=== PATIENT | male | born 1990 | race Caucasian/White ===

== ENCOUNTER → 2016-11-27 10:19 | Emergency (ER) | payer SELFPAY ==
[~2016-11-27 10:19] MED LIST: PPD test dose* 5 TU/0.1 ML TEST (*USE PPD ORDER SET*) INTRADERM SCH; PPD test dose* 5 TU/0.1 ML TEST (*USE PPD ORDER SET*) ONE
== END | disposition home or self-care (01) ==
LOC: OHCORT 10:19
DX: Z11.1 Encounter for screening for respiratory tuberculosis (principal)

== ENCOUNTER 2017-05-28 09:46 | Emergency (ER) | payer SELFPAY ==
[2017-05-28 10:02] VITALS: BP 153/85
--- NOTE | 2017-05-28 10:52 | UC ---
Psychiatric Complaint HPI - HPI Summary HPI Summary: anxiety and panic attacks x 2 months difficulty sleeping due to anxiety , racing thoughts pt. is working 3rd shift 10 pm to 8 am , and goes to school until 3 pm , - History Of Current Complaint Chief Complaint: [facility] Stated Complaint: MENTAL HEALTH Time Seen by Provider: 05/28/17 10:10 Hx Obtained From: Patient Onset/Duration: Gradual Onset, Lasting Weeks - 8, Still Present Timing: Constant Severity Initially: Moderate Severity Currently: Moderate Character: Depressed, Fearful, Anxious, Frustrated Aggravating Factor(s): Recent Stress - doing bad in school Alleviating Factor(s): Nothing Associated Signs And Symptoms: Sleep Disturbance, Appetite Change Has Suicidal: Thoughts - none, With A Plan - none Has Homicidal: Thoughts - none - Allergies/Home Medications Allergies/Adverse Reactions: Allergies Allergy/AdvReac Type Severity Reaction Status Date / Time No Known Allergies Allergy Verified 05/28/17 10:02 PMH/Surg Hx/FS Hx/Imm Hx Psychological History: Anxiety, Depression - Surgical History Surgical History: None Surgery Procedure, Year, and Place: WISDOM TEETH - Family History Known Family History: Positive: Diabetes, Respiratory Disease - Social History Alcohol Use: Occasionally Substance Use Type: Marijuana Substance Use Comment - Amount & Last Used: unknown usage Smoking Status (MU): Light Every Day Tobacco Smoker Type: Cigarettes Amount Used/How Often: 1/2 ppd Length of Time of Smoking/Using Tobacco: since age 24 Have You Smoked in the Last Year: Yes Household Exposure Type: Cigarettes Review of Systems Constitutional: Negative Skin: Negative Eyes: Negative ENT: Negative, Dental Pain Respiratory: Negative Psychological: Anxious, Depressed Is Patient Immunocompromised?: No All Other Systems Reviewed And Are Negative: Yes Physical Exam Triage Information Reviewed: Yes Appearance: Well-Appearing, No Pain Distress, Well-Nourished Vital Signs: Initial Vital Signs Temp 97.9 F 05/28/17 09:54 Pulse 73 05/28/17 09:54 Resp 14 05/28/17 09:54 BP 153/85 05/28/17 09:54 Pulse Ox 100 05/28/17 09:54 Vital Signs Reviewed: Yes Eyes: Positive: Conjunctiva Clear ENT: Positive: Normal ENT inspection, Hearing grossly normal, Pharynx normal Neck exam: Normal Neck: Positive: Supple, Nontender, No Lymphadenopathy Respiratory: Positive: Chest non-tender, Lungs clear, Normal breath sounds, No respiratory distress Cardiovascular: Positive: RRR, No Murmur, Pulses Normal Abdominal Exam: Normal Psychological Exam: Normal Psychological: Positive: Age Appropriate Behavior Skin Exam: Normal UC Physical Exam Vital Signs On Initial Exam: Initial Vitals Temp Pulse Resp BP Pulse Ox 97.9 F 73 14 153/85 100 05/28/17 09:54 05/28/17 09:54 05/28/17 09:54 05/28/17 09:54 05/28/17 09:54 - Psychiatric Exam Psychiatric: Depressed Mood: Depressed Appearance: Depressed Thought Process: Logical Memory: Intact Judgement: Normal Patient Medically Stable for Psych Evaluation/Referral/Trans: Yes Psych Complaint Course/Dx - Differential Dx/Diagnosis Provider Diagnoses: anxiety disorder Discharge - Discharge Plan Condition: Stable Disposition: HOME Prescriptions: Citalopram Hydrobromide [Celexa] 20 mg PO DAILY #30 tab hydrOXYzine PAMOATE CAP* [Vistaril CAP*] 25 mg PO Q8H PRN #20 cap PRN Reason: Anxiety Patient Education Materials: Anxiety (ED) Referrals: Vince Hendrix PA [Primary Care Provider] - 7 Days
== END 2017-05-28 10:40 | disposition home or self-care (01) ==
LOC: UCCORT 09:46
DX: F41.9 Anxiety disorder, unspecified (principal); F17.210 Nicotine dependence, cigarettes, uncomplicated; F12.90 Cannabis use, unspecified, uncomplicated
CPT/HCPCS: 99212; G0463